=== PATIENT | female | born 1975 | race Caucasian/White ===

== ENCOUNTER → 2017-02-12 | Outpatient (CLI) | payer BC ==
--- NOTE | 2017-02-13 13:30 | Diagnostic Imaging Report ---
Bilateral screening mammogram 2D views with tomosynthesis The current study was also evaluated with a Computer Aided Detection (CAD) system. Indication: Screening. No current complaints stated on the questionnaire. COMPARISON: 12/31/2015 Findings: The breasts are composed of scattered fibroglandular densities. There is a 6 mm asymmetry along the central slightly lateral aspect of the left breast seen only in the cc projection. Tomographic views are indeterminate. The right breast demonstrate no definite change. IMPRESSION: Focal compression view and ultrasound evaluation for slightly lateral left breast asymmetry is recommended. BI-RADS 0. ACR BI-RADS Category 0: Incomplete. (Needs additional imaging evaluation). Result letter will be mailed to the patient. Note: At least 10% of breast cancer is not imaged by mammography. Dictated by: Dictated on workstation # [id number]
== END ==
LOC: RAD 08:47
PROVIDERS: ATTEND Obstetrics & Gynecology
DX: Z12.31 Encounter for screening mammogram for malignant neoplasm of breast (principal)
CPT/HCPCS: 77067

== ENCOUNTER → 2017-02-24 | Outpatient (CLI) | payer BC ==
[~2017-02-24] MED LIST: ESCI10TA PO; LISI10TA2 PO; METF750T2 PO; SAXA5TAB PO; SIMV10TA3 PO
--- NOTE | 2017-02-24 15:48 | Diagnostic Imaging Report ---
EXAMINATION: Left breast ultrasound. INDICATION: Left breast asymmetry in the outer aspect. FINDINGS: Unremarkable breast parenchyma is seen with no focal lesion. IMPRESSION: Negative study. The mammographic asymmetry is favored to be summation artifact of parenchyma. A 6 month followup mammogram is recommended to ensure no adverse development. ACR BI-RADS Category 3: Probably benign findings. Dictated by: Dictated on workstation # [id number]
--- NOTE | 2017-02-25 08:31 | Diagnostic Imaging Report ---
EXAMINATION: Left breast diagnostic mammogram with tomography. The current study was also evaluated with a Computer Aided Detection (CAD) system. INDICATION: Asymmetry along the outer aspect of the left breast. FINDINGS: Focal compression views and tomography evaluation demonstrate no underlying definite mass. IMPRESSION: The findings are in favor of summation artifact of parenchyma with no definite underlying lesion. An ultrasound evaluation is pending. ACR BI-RADS Category 0: Incomplete. (Needs additional imaging evaluation). Result letter will be mailed to the patient. Note: At least 10% of breast cancer is not imaged by mammography. Dictated by: Dictated on workstation # [id number]
== END ==
LOC: RAD 14:19
PROVIDERS: ATTEND Obstetrics & Gynecology
DX: N64.89 Other specified disorders of breast (principal)
CPT/HCPCS: 76642

== ENCOUNTER 2017-03-06 05:40 | Outpatient (CLI) | payer BC ==
[~2017-03-06] VITALS: Ht 161.3 cm; Wt 126.1 kg
[2017-03-06] MEDS ORDERED: SIMV10TA3 PO (14:24)
[2017-03-06] MEDS ORDERED: METF750T2 PO (14:24)
[2017-03-06] MEDS ORDERED: SAXA5TAB PO (14:24)
[2017-03-06] MEDS ORDERED: LISI10TA2 PO (14:24)
[2017-03-06] MEDS ORDERED: ESCI10TA PO (14:24)
== END 2017-03-06 14:27 ==
LOC: PREOP 05:40
PROVIDERS: ATTEND Surgery
DX: Z01.818 Encounter for other preprocedural examination (principal); Z12.11 Encounter for screening for malignant neoplasm of colon

== ENCOUNTER 2017-03-10 07:27 | Day surgery (SDC) | payer BC ==
[~2017-03-10] VITALS: Ht 161.3 cm; Wt 126.1 kg
[2017-03-10 07:46] VITALS: BP 133/83
[2017-03-10] MEDS ORDERED: NS IV 500 ML 500 ML IV PRN (07:50)
[2017-03-10] MEDS ORDERED: fentaNYL INJECTION 100 MCG/2 ML AMP ONE ×2 (08:15)
[2017-03-10] MEDS ORDERED: MIDAZOLAM 2 MG/2 ML (VERSED) VIAL ONE ×5 (08:15→08:53)
--- NOTE | 2017-03-10 08:21 | History & Physicial ---
History of Present Illness History of Present Illness Reason for visit/HPI to undergo screening colonoscopy. Family history of colon cancer and polyps. Date of Admission Date Seen by Provider: Mar 10, 2017 Time Seen by Provider: 08:18 I consulted on this patient on 03/10/17 08:18 Attending Physician Adelina Concepcion MD Admitting Physician Lisa Crenshaw MD Consult Allergies and Home Medications Allergies Coded Allergies: No Known Drug Allergies (Unverified , 03/06/17) Home Medications Escitalopram Oxalate 10 Mg Tablet, 15 MG PO DAILY, (Reported) take 1 1/2 of 10mg tab Lisinopril 10 Mg Tablet, 10 MG PO DAILY, (Reported) Metformin HCl 750 Mg Tab.er.24h, 750 MG PO BID, (Reported) Saxagliptin HCl 5 Mg Tablet, 5 MG PO DAILY, (Reported) Simvastatin 10 Mg Tablet, 10 MG PO DAILY, (Reported) Past Pbxiaua-Siowwj-Ttjmsq Hx Patient Social History Marrital Status: single Employed/Student: employed Alcohol Use: Rarely Uses Recreational Drug Use: No Smoking Status: Current Everyday Smoker Type Used: Cigarettes Recent Foreign Travel: No Contact w/other who traveled: No Recent Hopitalizations: No Recent Infectious Disease Expo: No Seasonal Allergies Seasonal Allergies: No Surgeries HX Surgeries: Yes (pilondial cyst) Respiratory Hx Respiratory Disorders: No Cardiovascular Hx Cardiovascular Disorders: Yes Cardiac Disorders: Hypertension Neurological Hx Neurological Disorders: No Genitourinary Hx Genitourinary Disorders: No Gastrointestinal Hx Gastrointestinal Disorders: No Musculoskeletal Hx Musculoskeletal Disorders: No Endocrine Hx Endocrine Disorders: Yes HEENT HX ENT Disorders: No Cancer Hx Cancer: No Psychosocial Hx Psychiatric Problems: No Integumentary HX Skin/Integumentary Disorder: No Blood Transfusions Hx Blood Disorders: No Constitutional: no symptoms reported EENTM: no symptoms reported Cardiovascular: no symptoms reported Gastrointestinal: no symptoms reported Musculoskeletal: no symptoms reported Skin: no symptoms reported Psychiatric/Neurological: No Symptoms Reported Physical Exam Vital Signs Vital Sign - Last 12Hours 03/10/17 07:46 Temp 98.9 Pulse 70 Resp 16 B/P (MAP) 133/83 Pulse Ox 94 O2 Delivery Room Air Capillary Refill : General Appearance: No Apparent Distress HEENT: Normal ENT Inspection Neck: Normal Inspection Cardiovascular: Regular Rate, Rhythm Gastrointestinal: Non Tender, Soft Rectal: Deferred Back: Normal Inspection Neurologic/Psychiatric: Alert, Oriented x3 Skin: Warm/Dry Assessment/Plan Assessment and Plan lady with a family history of colon cancer and polyps. For screening colonoscopy Problems: ADELINA CONCEPCION MD Mar 10, 2017 8:21 am
--- NOTE | 2017-03-10 08:22 | Conscious Sedation/ASA ---
Conscious Sedation Pre-Proced Time Reviewed: 08:02 ASA Class: 2 Airway Mallampati Classification: ([place] appropriate class) I. II. III, IV Lungs Heart ASA score ASA 1: a normal healthy patient ASA 2: a patient with a mild systemic disease (mid diabetes, controlled hypertension, obesity ASA 3: a patient with a severe systemic disease that limits activity (angina , COPD, prior Myocardial infarction) ASA 4: a patient with an incapacitating disease that is a constant threat to life (CHF, renal failure) ASA 5: a moribund patient not expected to survive 24 hrs. (ruptured aneurysm) ASA 6: a declared brain patient whose organs are being harvested. For emergent operations, add the letter E after the classification Grade 2 Sedation Plan: Discussed options with patient/fam Note The patient is an appropriate candidate to undergo the planned procedure, sedation, and anesthesia. The patient immediately re-assessed prior to indication. ADELINA CONCEPCION MD Mar 10, 2017 8:21 am
[2017-03-10] MEDS: fentaNYL INJECTION 100 MCG/2 ML AMP IVP PRN ×4 (08:40→08:58)
[2017-03-10] MEDS: MIDAZOLAM 2 MG/2 ML (VERSED) VIAL IVP PRN ×5 (08:41→09:00)
--- NOTE | 2017-03-10 09:34 | Endo Procedure Record ---
Endo Procedure Report Date of Procedure Mar 10, 2017 Surgeon (s) ADELINA CONCEPCION MD Post Procedure/Op Diagnosis rectal polyps 2 Sessile polyp at the sigmoid colon Procedure Performed colonoscopy to cecum Polypectomy(Hot biopsy) Description of Procedure Anesthesia Type: Conscious Sedation Specimen(s) collected/removed rectal polyps 2. Sigmoid polyp Description of the Procedure Indication for procedure: This lady, with a family history of colon cancer and sessile polyps, came in for a screening colonoscopy. Informed consent was obtained after reviewing the procedure in detail. Description of the procedure: She was placed in left lateral decubitus position and her vital signs were monitored. Conscious sedation was achieved using Versed and fentanyl. Digital rectal examination was unremarkable. The colonoscope was then introduced into the rectum and advanced to the cecum, with some difficulty around the sigmoid colon the scope was then withdrawn slowly and the mucosa examined in a systematic fashion. Findings: 1. 2 polyps, a millimeter each, adjacent to each other at the proximal rectum. These were excised with hot biopsy forceps. 2. An area of slightly raised mucosa at the rectosigmoid junction without any distinct appearance of a polyp. Biopsy was obtained. She tolerated the procedure well and was taken back to the nursing area in a stable condition. Impression: Screening colonoscopy. Rectal polyps excised. Positive family history. Recommend repeating in 1 year. Copies To: IJEOMA MAGAÑA MD,ADELINA Cadena MD Mar 10, 2017 9:34 am
[2017-03-10 09:35] VITALS: BP 138/83
--- NOTE | 2017-03-10 09:36 | Discharge Inst-Simple/Standard ---
Discharge Inst-Standard Discharge Medications New, Converted or Re-Newed RX: Other Patient Instructions/Follow Up Plan of Care/Instructions/FU: repeat colonoscopy in one year Activity as Tolerated: Yes Discharge Diet: No Restrictions ADELINA CONCEPCION MD Mar 10, 2017 9:36 am
[2017-03-10 10:05] VITALS: BP 137/86
[2017-03-10 10:14] VITALS: BP 137/86
== END 2017-03-10 10:15 | disposition home or self-care (01) ==
LOC: ENDO 07:27
PROVIDERS: ATTEND Surgery
DX: Z12.11 Encounter for screening for malignant neoplasm of colon (principal); K63.5 Polyp of colon; K62.1 Rectal polyp; Z80.0 Family history of malignant neoplasm of digestive organs; F17.210 Nicotine dependence, cigarettes, uncomplicated; I10 Essential (primary) hypertension; Z79.899 Other long term (current) drug therapy
CPT/HCPCS: 88305

== ENCOUNTER → 2018-06-17 | Outpatient (CLI) | payer BC ==
--- NOTE | 2018-06-17 20:51 | Diagnostic Imaging Report ---
EXAMINATION: Digital mammogram bilateral screening with 3D tomosynthesis. INDICATION: Screening. COMPARISON: This study was compared to the prior exams of 02/12/2017, 01/18/2016, and 01/10/2015. At this time, there are no current complaints. The current study was also evaluated with a Computer Aided Detection (CAD) system. FINDINGS: There are scattered fibroglandular densities in both breasts, which could obscure a lesion. The previous exam of 02/02/2017 suggested a small asymmetry in the lateral aspect of the left breast. That finding is again evident and no different. I do suspect it is related to fibroglandular tissue. The overall appearance of the breasts has not changed significantly otherwise. There is no primary or secondary sign of malignancy noted. IMPRESSION: There is no evidence for malignancy. ACR BI-RADS Category 1: Negative. Result letter will be mailed to the patient. Note: At least 10% of breast cancer is not imaged by mammography. Dictated by: Dictated on workstation # [id number]
== END ==
LOC: RAD 07:34
PROVIDERS: ATTEND Obstetrics & Gynecology
DX: Z12.31 Encounter for screening mammogram for malignant neoplasm of breast (principal)
CPT/HCPCS: 77067

== ENCOUNTER → 2020-07-14 | Outpatient (CLI) | payer BC ==
[~2020-07-14] MED LIST changes: -METF750T2 PO; +METF750T45 PO; +SIMV10TA26 PO; -SIMV10TA3 PO
--- NOTE | 2020-07-14 10:43 | Diagnostic Imaging Report ---
INDICATION: Routine screening. Comparison is made with prior mammogram from 06/17/2018 and 02/12/2017. 2-D and 3-D bilateral screening mammography was performed with CAD. Both breasts are heterogeneously dense, limiting the sensitivity of mammography. The parenchymal pattern is stable. No dominant mass or malignant appearing microcalcifications are seen. Axillae are unremarkable. IMPRESSION: BI-RADS Category 1 No mammographic features suspicious for malignancy are parenchymal pattern ACR BI-RADS Category 1: Negative. Result letter will be mailed to the patient. Note: At least 10% of breast cancer is not imaged by mammography. Dictated by: Dictated on workstation # [id number]
== END ==
LOC: RAD 08:21
PROVIDERS: ATTEND Obstetrics & Gynecology
DX: Z12.31 Encounter for screening mammogram for malignant neoplasm of breast (principal)
CPT/HCPCS: 77063; 77067